=== PATIENT | female | born 1980 | race Native Hawaiian/Other Pacific Islander ===

== ENCOUNTER 2016-11-07 17:29 | Emergency (ER) | payer OTHER ==
[~2016-11-07] VITALS: Ht 160 cm; Wt 63.5 kg
[~2016-11-07 17:29] MED LIST: BUSPIRONE10 MG PO; CELEXA10 MG PO; NEURONTIN 100M100 MG OR
[2016-11-07 20:20] VITALS: BP 128/72; TEMP 97.6
== END 2016-11-07 20:20 | disposition home or self-care (01) ==
LOC: ED 17:29
DX: M54.2 Cervicalgia (principal)
CPT/HCPCS: 96372; 99283; J2360

== ENCOUNTER 2017-02-16 18:08 | Emergency (ER) | payer OTHER ==
[~2017-02-16] VITALS: Ht 160 cm; Wt 54.4 kg
[2017-02-16 20:15] VITALS: BP 130/80; TEMP 97.8
== END 2017-02-16 20:15 | disposition home or self-care (01) ==
LOC: ED 18:08
DX: S13.8XXA Sprain of joints and ligaments of other parts of neck, initial encounter (principal); S50.01XA Contusion of right elbow, initial encounter; S20.222A Contusion of left back wall of thorax, initial encounter; S20.221A Contusion of right back wall of thorax, initial encounter; S30.0XXA Contusion of lower back and pelvis, initial encounter; W10.8XXA Fall (on) (from) other stairs and steps, initial encounter; Y92.098 Other place in other non-institutional residence as the place of occurrence of the external cause
CPT/HCPCS: 96372; 99283; J1885

== ENCOUNTER 2017-05-11 20:35 | Inpatient (IN) | payer OTHER ==
[~2017-05-11] VITALS: Ht 157.5 cm; Wt 56.8 kg
[2017-05-11 21:00] VITALS: BP 95/52; TEMP 99.8
[2017-05-11 21:47] LABS: PLATELET COUNT 302 K/uL (152-353)
[2017-05-11 21:59] LABS: POTASSIUM 3.7 mmol/L (3.6-5.2); SODIUM 130 mmol/L (136-145)
[2017-05-12] VITALS (7 sets, daily range): BP systolic 94–117; BP diastolic 34–66; TEMP 97.9–100.2; Ht 157.5 cm; Wt 56.8 kg
--- NOTE | 2017-05-12 12:10 | NUR ---
DR. TALBOT HERE TO SEE PT.
--- NOTE | 2017-05-12 14:00 | NUR ---
PT'S SO UPSETTING PT, HOLLERING AND CUSSING. CHILDREN PRESENT AND UPSET. PT STATED SHE WANTS TO GET OUT OF THE RELATIONSHIP AND WANTS TO SEEK CORRECTION. DR. TALBOT NOTIFIED.
--- NOTE | 2017-05-12 14:50 | NUR ---
[facility] CALLED AND A MESSAGE WAS LEFT. ORDERED BY DR. TALBOT.
--- NOTE | 2017-05-12 15:13 | NUR ---
PT REQUESTED ANOTHER IV. IV STARTED IN L FA WITH A 22G X 1 ATTEMPT. IVFS INFUSING WITHOUT ANY PROBLEMS. IV TO R AC SL.
[2017-05-13 04:18] VITALS: BP 105/61; TEMP 98
[2017-05-13 06:07] LABS: PLATELET COUNT 265 K/uL (152-353)
[2017-05-13 06:20] LABS: POTASSIUM 3.8 mmol/L (3.6-5.2); SODIUM 138 mmol/L (136-145)
[2017-05-13 08:00] VITALS: BP 96/55; TEMP 98.6
[2017-05-13 12:00] VITALS: BP 91/50; TEMP 98.2
[2017-05-13 16:00] VITALS: BP 138/71; TEMP 98
--- NOTE | 2017-05-13 16:58 | NUR ---
PHARM D CALLED FOR GENTAMICIN DOSEAGE DUE TO PEAK. PHARM D TO CALL BACK.
--- NOTE | 2017-05-13 18:43 | NUR ---
BOTH IV'S DC'D WITH CANNULA INTACT. PT TOLERATED WELL. DC INSTRUCTIONS GIVEN TO PT. RX GIVEN TO PT. PT VERABLIZED UNDERSTANDING. PT TO CALL FOR FOLLOW UP APPT IN 10 DAYS. NAD NOTED. PT LEFT AMBULATORY REQUESTED.
== END 2017-05-13 18:50 | disposition home or self-care (01) | DRG 690 ==
LOC: ED 20:35 → MED/SURG 05-12 01:50
PROVIDERS: Emergency Medicine; ADMIT Family Medicine
DX: N39.0 Urinary tract infection, site not specified (principal); B96.20 Unspecified Escherichia coli [E. coli] as the cause of diseases classified elsewhere; K29.00 Acute gastritis without bleeding; E86.0 Dehydration
CPT/HCPCS: 36415; 80053; 80170; 81000; 82150; 83690; 85027; 86592; 87077; 87086; 87088; 87186; 87490; 87590; 96365; 96366; 96367; 96374; 96375; 99284; J0696; J1170; J1200; J1580; J1885; Q9963

== ENCOUNTER 2017-10-09 07:22 | Emergency (ER) | payer OTHER ==
[~2017-10-09] VITALS: Ht 160 cm; Wt 61.2 kg
[2017-10-09 07:30] VITALS: TEMP 98.1
[2017-10-09 07:54] LABS: PLATELET COUNT 305 K/uL (152-353)
[2017-10-09 08:28] VITALS: BP 132/68
== END 2017-10-09 08:28 | disposition home or self-care (01) ==
LOC: ED 07:22
DX: L03.211 Cellulitis of face (principal); K02.9 Dental caries, unspecified
CPT/HCPCS: 85027; 99283

== ENCOUNTER 2018-02-17 10:24 | Emergency (ER) | payer OTHER ==
[~2018-02-17] VITALS: Ht 157.5 cm; Wt 61.2 kg
[2018-02-17 10:43] VITALS: TEMP 100.2
[2018-02-17 12:41] VITALS: BP 132/72
== END 2018-02-17 12:45 | disposition home or self-care (01) ==
LOC: ED 10:24
DX: S40.011A Contusion of right shoulder, initial encounter (principal); W50.0XXA Accidental hit or strike by another person, initial encounter
CPT/HCPCS: 96372; 99283; J1885

== ENCOUNTER 2018-07-17 16:44 | Emergency (ER) | payer OTHER ==
[~2018-07-17] VITALS: Ht 157.5 cm; Wt 61.2 kg
[2018-07-17 16:57] VITALS: TEMP 99
[2018-07-17 17:40] VITALS: BP 126/82
== END 2018-07-17 17:40 | disposition home or self-care (01) ==
LOC: ED 16:44
DX: K04.7 Periapical abscess without sinus (principal); K08.89 Other specified disorders of teeth and supporting structures
CPT/HCPCS: 96372; 99282; J1885

== ENCOUNTER 2018-08-22 07:53 | Emergency (ER) | payer OTHER ==
[~2018-08-22] VITALS: Ht 160 cm; Wt 68.0 kg
[2018-08-22 09:48] VITALS: BP 128/84; TEMP 98.2
== END 2018-08-22 09:48 | disposition home or self-care (01) ==
LOC: ED 07:53
DX: S43.401A Unspecified sprain of right shoulder joint, initial encounter (principal); X50.0XXA Overexertion from strenuous movement or load, initial encounter
CPT/HCPCS: 99282